=== PATIENT | male | born 1990 | race American Indian/Alaskan Native ===

== ENCOUNTER 2017-04-29 01:54 | Emergency (ER) | payer SELFPAY ==
--- NOTE | 2017-05-01 12:44 | ED Elopement Review ---
ED Pt Elopement review - Call Back decision Pt Call Back Decision: No action required
== END 2017-04-29 02:00 | disposition left against medical advice (07) ==
LOC: ED 01:54
DX: R51 Headache (principal); Z53.21 Procedure and treatment not carried out due to patient leaving prior to being seen by health care provider